=== PATIENT | female | born 1950 | race African-American/Black ===

== ENCOUNTER 2022-07-03 10:04 | Day surgery (SDC) | payer OTHER ==
[2022-06-27 15:31] VITALS: BMI 42.6
[2022-07-03 11:44] VITALS: TEMP 98.5
[2022-07-03 11:48] VITALS: BP 178/80; PULSE 98; RESP 19
== END 2022-07-03 12:20 | disposition home or self-care (01) ==
LOC: FASU-ENDO 10:04
PROVIDERS: ATTEND Internal Medicine Gastroenterology
PROC: 0DJD8ZZ Inspection of Lower Intestinal Tract, Via Natural or Artificial Opening Endoscopic (ICD-10-PCS; principal; 2022-07-03 11:08)
DX: Z12.11 Encounter for screening for malignant neoplasm of colon (principal); Z86.010 Personal history of colon polyps; K64.1 Second degree hemorrhoids; K64.4 Residual hemorrhoidal skin tags
CPT/HCPCS: 82962

== ENCOUNTER 2022-12-04 08:32 | Day surgery (SDC) | payer OTHER ==
[2022-12-01 10:36] VITALS: BMI 41.6
[2022-12-04 14:46] VITALS: BP 157/78; PULSE 90; RESP 16; TEMP 97
== END 2022-12-04 12:35 | disposition home or self-care (01) ==
LOC: FASU-ENDO 08:32
PROVIDERS: ATTEND Internal Medicine Gastroenterology
PROC: 0DJD8ZZ Inspection of Lower Intestinal Tract, Via Natural or Artificial Opening Endoscopic (ICD-10-PCS; principal; 2022-12-04 11:29)
DX: Z12.11 Encounter for screening for malignant neoplasm of colon (principal); Z86.010 Personal history of colon polyps
CPT/HCPCS: 82962

== ENCOUNTER 2023-11-08 07:10 | Day surgery (SDC) | payer OTHER ==
[2023-11-02 09:28] VITALS: BMI 40.9
[2023-11-08 08:17] VITALS: RESP 16
[2023-11-08 09:39] VITALS: TEMP 97.3
[2023-11-08 11:15] VITALS: BP 145/73; PULSE 88
== END 2023-11-08 10:45 | disposition home or self-care (01) ==
LOC: FASU-ENDO 07:10
PROVIDERS: ATTEND Internal Medicine Gastroenterology
PROC: 0DB98ZX Excision of Duodenum, Via Natural or Artificial Opening Endoscopic, Diagnostic (ICD-10-PCS; 2023-11-08)
PROC: 0DB68ZX Excision of Stomach, Via Natural or Artificial Opening Endoscopic, Diagnostic (ICD-10-PCS; 2023-11-08)
PROC: 0DBP8ZX Excision of Rectum, Via Natural or Artificial Opening Endoscopic, Diagnostic (ICD-10-PCS; principal; 2023-11-08 08:55)
DX: D50.9 Iron deficiency anemia, unspecified (principal); K29.50 Unspecified chronic gastritis without bleeding; R19.7 Diarrhea, unspecified
CPT/HCPCS: 82962; 88305-TC; 88342-TC